=== PATIENT | female | born 2005 | race Two or more races ===

== ENCOUNTER 2024-05-26 13:46 | Emergency (ER) | payer SELFPAY ==
[~2024-05-26] VITALS: Ht 152.4 cm; Wt 65.0 kg
--- NOTE | 2024-05-26 14:44 | ED.PDOC ---
History of Present Illness HPI Comments 18-year-old female presents to the ER with no prior history associated with a chief complaint of mouth pain. Patient has a body cavity on the left lower tooth. Patient reports on the left cheek swelling yesterday. There are no abscess near or around the cavity or trismus. Denies PMHx, SHx, Social Hx, chi lls, fever, N/V/D, SOB, CP or other associated symptoms, modifiers, or recent injuries at this time. Time Seen by MD: 14:15 Reviewed Notes: Nurses Notes, Medications, Allergies Allergies: Coded Allergies: NO KNOWN ALLERGIES (Unverified , 05/26/24) Information Source: Patient Mode of Arrival: Ambulatory Severity: Moderate Timing: Hours Duration: Since onset, Hours Prehospital treatment: None Past Medical History PAST MEDICAL HISTORY: Denies Surgical History: Denies all surgeries MACHINE HOOP MAKER History: No Pertinent MACHINE HOOP MAKER History Family History Family History: Reviewed,noncontributory to illness, Unknown Social History Smoker: Non-Smoker Alcohol: Denies ETOH Use Drugs: Denies Drug Use Lives In: Home Constitutional: denies: chills, diaphoresis, fatigue, fever, malaise, sweats, weakness, others EENTM: reports: mouth pain, mouth swelling; denies: blurred vision, double vision, ear bleeding, ear discharge, ear drainage, ear pain, ear ringing, eye pain, eye redness, hearing loss, nasal discharge, nose bleeding, nose congestion, nose pain, photophobia, tearing, throat pain, throat swelling, voice changes, others Respiratory: denies: cough, hemoptysis, orthopnea, SOB at rest, shortness of breath, SOB with excertion, stridor, wheezing, others Cardiovascular: denies: chest pain, dizzy spells, diaphoresis, Dyspnea on exertion, edema, irregular heart beat, left arm pain, lightheadedness, palpitations, PND, syncope, others Gastrointestinal: denies: abdomen distended, abdominal pain, blood streaked bowels, constipated, diarrhea, dysphagia, difficulty swallowing, hematemesis, melena, nausea, poor appetite, poor fluid intake, rectal bleeding, rectal pain, vomiting, others Genitourinary: denies: abnormal vagina bleeding, burning, dyspareunia, dysuria, flank pain, frequency, hematuria, incontinence, pain, , vagina discharge, urgency, others Neurological: denies: dizziness, fainting, headache, left sided numbness, left sided weakness, numbness, paresthesia, pre-existing deficit, right sided numbness, right sided weakness, seizure, speech problems, tingling, tremors, weakness, others Musculoskeletal: denies: back pain, gout, joint pain, joint swelling, muscle pain, muscle stiffness, neck pain, others Integumetry: denies: bruises, change in color, change in hair/nails, dryness, laceration, lesions, lumps, rash, wounds, others Allergic/Immunocompromised: denies: Difficulty Healing, Frequent Infections, Hives, Itching, others Hematologic/Lymphatic: denies: anemia, blood clots, easy bleeding, easy bruising, swollen glands, others Endocrine: denies: excessive hunger, excessive sweating, excessive thirst, excessive urination, flushing, intolerance to cold, intolerance to heat, unexplained weight gain, unexplained weight loss, others Psychiatric: denies: anxiety, bipolar disorder, depression, hopeless, panic disorder, schizophrenia, sleepless, suicidal, others All Other Systems: Reviewed and Negative Physical Exam Exam Comments Left cheek swelling is mild Canine area cavity No abscess No Trismus General Appearance: No Apparent Distress, Normal HEENT: Normal ENT Inspection, Pharynx Normal, TMs Normal Neck: Full Range of Motion, Non-Tender, Normal, Normal Inspection Respiratory: Chest Non-Tender, Lungs Clear, No Accessory Muscle Use, No Respiratory Distress, Normal Breath Sounds Cardiovascular: No Edema, No JVD, No Murmur, No Gallop, Normal Peripheral Pulses, Regular Rate/Rhythm Breast Exam: Deferred Gastrointestinal: No Organomegaly, Non Tender, No Pulsatile Mass, Normal Bowel Sounds, Soft Genitalia: Deferred Pelvic: Deferred Rectal: Deferred Extremities: No calf tenderness, Normal capillary refill, Normal inspection, Normal range of motion, Non-tender, No pedal edema Musculoskeletal : Apperance: Normal Neurologic: Alert, mixing machine tender cork gasket II-XII nml as Tested, No Motor Deficits, Normal Affect, Normal Mood, No Sensory Deficits Cerebellar Function: Normal Reflexes: Normal Skin: Dry, Normal Color, Warm Lymphatic: No Adenopathy Was a procedure done? Was a procedure done?: No Differential Dx Considerations may include: facial cellulitis, facial abscess, dental infection, gingivitis, dental caries, dental abscess X-Ray, Labs, Meds, VS Vital Signs Date Time Temp Pulse Resp B/P (MAP) Pulse Ox O2 Delivery O2 Flow Rate FiO2 05/26/24 15:32 75 16 99 Room Air* 0 21 05/26/24 15:31 98.6 75 16 119/87 (98) 99 98.6 05/26/24 14:47 97.9 82 18 140/95 (110) 97 Lab Test 05/26/24 14:28 Range/Units White Blood Count 11.6 H 4.4-10.8 10^3/uL Red Blood Count 4.95 4.0-5.20 10^6/uL Hemoglobin 15.1 12.2-16.2 g/dL Hematocrit 44.2 36.0-46.0 % Mean Corpuscular Volume 89.4 80.0-100.0 fL Mean Corpuscular Hemoglobin 30.4 28.0-32.0 pg Mean Corpuscular Hemoglobin Concent 34.0 32.0-36.0 g/dL Red Cell Distribution Width 12.6 11.8-14.3 % Platelet Count 212 140-450 10^3/uL Mean Platelet Volume 9.4 6.9-10.8 fL Neutrophils (%) (Auto) 74.2 37.0-80.0 % Lymphocytes (%) (Auto) 17.7 10.0-50.0 % Monocytes (%) (Auto) 6.5 0.0-12.0 % Eosinophils (%) (Auto) 1.2 0.0-7.0 % Basophils (%) (Auto) 0.4 0.0-2.0 % Neutrophils # (Auto) 8.6 1.6-8.6 10 ^3/uL Lymphocytes # (Auto) 2.0 0.4-5.4 10 ^3/uL Monocytes # (Auto) 0.8 0-1.3 10 ^3/uL Eosinophils # (Auto) 0.1 0-0.8 10 ^3/uL Basophils # (Auto) 0.1 0-0.2 10 ^3/uL Nucleated Red Blood Cells 0.0 % Current Medications Medications (Trade) Dose Ordered Sig/Hiro Route Start Time Stop Time Status Last Admin Ceftriaxone Sodium (Rocephin W Lidocaine IM) 1 gm ONCE ONCE IM 05/26/24 14:15 05/26/24 14:16 DC 05/26/24 15:31 Time of 1ST Reevaluation: 14:45 Reevaluation 1ST: Unchanged Time of 2ND Reevaluation: 15:43 Reevaluation 2ND: Improved Patient Education/Counseling: Diagnosis, Treatment, Prognosis Family Education/Counseling: No Family Present Additional Information External Notes-N/A Ordered Tests-cbc treatments and results communicated with medical personnel im antibiotic administered pt has facial cellulitis from a dental infection, without an abscess. she is stable to be discharged, with antibiotic, NSAID, and follow up with her dentist Departure 1 Departure Time of Disposition: 15:45 Impression: Primary Impression: Dental caries Additional Impression: Facial cellulitis Disposition: 01 HOME / SELF CARE / HOMELESS Condition: Good Discharged With: Self, Relative (Mother) Critical Care Note Critical Care Time?: No Stability Stability form required: No I personally scribed for KIRA BENITEZ MD ([email or web address]) on 05/26/24 at 14:44. Electronically submitted by Riley Patterson ([email or web address]). KIRA BENITEZ MD May 26, 2024 14:44
[2024-05-26 14:52] LABS: Basophils # (auto) 0.1 10 ^3/uL (0-0.2); Basophils % (auto) 0.4 % (0.0-2.0); Eosinophils # (auto) 0.1 10 ^3/uL (0-0.8); Eosinophils % (auto) 1.2 % (0.0-7.0); Hematocrit 44.2 % (36.0-46.0); Hemoglobin 15.1 g/dL (12.2-16.2); Lymphocytes % (auto) 17.7 % (10.0-50.0); Mean Corpuscular Hemoglobin 30.4 pg (28.0-32.0); Mean Corpuscular Volume 89.4 fL (80.0-100.0); Monocytes # (auto) 0.8 10 ^3/uL (0-1.3); Monocytes % (auto) 6.5 % (0.0-12.0); Neutrophils # (auto) 8.6 10 ^3/uL (1.6-8.6); Neutrophils % (auto) 74.2 % (37.0-80.0); Platelet Count (auto) 212 10^3/uL (140-450); Red Blood Cells 4.95 10^6/uL (4.0-5.20); Red Cell Distribution Width 12.6 % (11.8-14.3); White Blood Cell 11.6 10^3/uL (4.4-10.8)
[2024-05-26 15:31] VITALS: BP 119/87; TEMP 98.6
[2024-05-26] MEDS: cefTRIAXone W LIDOCAINE 1 GM IM IM ONE (15:31)
[2024-05-26 15:32] VITALS: PULSE 75; RESP 16; O2SAT 99
[2024-05-26] MEDS: cefTRIAXone SOD 1,000 MG VL ONE (15:37)
[2024-05-26] MEDS: LIDOCAINE 1% HCL (LOCAL ANESTH.) INJ 20ML MDV ONE ×2 (15:37→15:38)
[2024-05-26] MEDS ORDERED: IBU600T PO (15:47)
[2024-05-26] MEDS ORDERED: CEPH500T PO (15:47)
== END 2024-05-26 16:00 | disposition home or self-care (01) ==
LOC: ER 13:46
DX: K02.9 Dental caries, unspecified (principal); L03.211 Cellulitis of face
CPT/HCPCS: 36415; 85025; 96372; 99283; J0696; J2003

== ENCOUNTER 2024-06-07 23:33 | Emergency (ER) | payer MEDICAID, OTHER ==
[~2024-06-07] VITALS: Ht 162.6 cm; Wt 63.7 kg
[~2024-06-07 23:33] MED LIST: CEPH500T PO; IBU600T PO
[2024-06-08 01:13] VITALS: BP 124/80; PULSE 98; RESP 17; TEMP 99.9; O2SAT 98
[2024-06-08] MEDS: DexAMETHasone SOD PHOS 10MG/1ML VIAL INJ IM ONE (01:27)
[2024-06-08] MEDS: cefTRIAXone SOD 1,000 MG VL IM ONE (01:27)
[2024-06-08] MEDS: BENZOCAINE (DENTAL) 20 % SPRAY 60ML MT ONE (01:34)
[2024-06-08] MEDS ORDERED: AUG875T PO (03:44)
[2024-06-08] MEDS ORDERED: CLIN1CAP70 PO (03:44)
--- NOTE | 2024-06-08 03:44 | ED.PDOC ---
Eye-HPI HPI Comments THIS IS A 18-YEAR-OLD FEMALE PRESENTS TO THE ED CHIEF COMPLAINT SORE THROAT X2 DAYS.. LEFT-SIDED THROAT PAIN 8/10 ON PAIN SCALE THROBBING AND BURNING IN NATURE. SHE HAS BEEN TAKING [id number] TYLENOL AND MOTRIN WITH LITTLE RELIEF. CURRENTLY DENIES DIFFICULTY BREATHING, DIFFICULTY IN SWALLOWING, SHARP OF BREATH, DOES NOTE SUBJECTIVE FEVERS AT HOME. Chief Complaint: Sore Throat Time Seen by MD: 23:38 Reviewed Notes: Nurses Notes, Medications, Allergies Allergies: Coded Allergies: NO KNOWN ALLERGIES (Unverified , 05/26/24) Home Meds Active Scripts Clindamycin Hcl (Clindamycin Hcl) 300 Mg Cap, 1 CAP PO QID for 10 Days, #40 CAP Prov:SALLIE OHARA 06/08/24 Amoxicillin & Pot Clavulanate (AUGMENTIN TABLET) 875 Mg Tb, 1 TAB PO BID for 10 Days, #20 TAB Prov:SALLIE OHARA 06/08/24 Ibuprofen Micronized (MOTRIN TABLET) 600 Mg Tb, 600 MG PO TID PRN, #40 TAB *Black box warning-NSAIDS can increase risk of SC & hypertension, GI irritation, ulceration, bleed, perferation. Do not use post cardiac surgery. Use short duration/lowest effective dose. Prov:KIRA BENITEZ MD 05/26/24 Cephalexin Monohydrate (Cephalexin) 500 Mg Tab, 500 MG PO QID for 7 Days, #28 TAB Prov:KIRA BENITEZ MD 05/26/24 Information Source: Patient Mode of Arrival: Ambulatory Past Medical History PAST MEDICAL HISTORY: Denies Surgical History: Denies all surgeries WIRE WALKER History: No Pertinent WIRE WALKER History Family History Family History: Reviewed,noncontributory to illness, Unknown Social History Smoker: Non-Smoker Alcohol: Denies ETOH Use Drugs: Denies Drug Use Lives In: Home Constitutional: reports: fever; denies: chills, diaphoresis, fatigue, malaise, sweats, weakness, others EENTM: reports: throat pain, throat swelling; denies: blurred vision, double vision, ear bleeding, ear discharge, ear drainage, ear pain, ear ringing, eye pain, eye redness, hearing loss, mouth pain, mouth swelling, nasal discharge, nose bleeding, nose congestion, nose pain, photophobia, tearing, voice changes, others Respiratory: denies: cough, hemoptysis, orthopnea, SOB at rest, shortness of breath, SOB with excertion, stridor, wheezing, others Cardiovascular: denies: chest pain, dizzy spells, diaphoresis, Dyspnea on exertion, edema, irregular heart beat, left arm pain, lightheadedness, palpitations, PND, syncope, others Gastrointestinal: denies: abdomen distended, abdominal pain, blood streaked bowels, constipated, diarrhea, dysphagia, difficulty swallowing, hematemesis, melena, nausea, poor appetite, poor fluid intake, rectal bleeding, rectal pain, vomiting, others Genitourinary: denies: abnormal vagina bleeding, burning, dyspareunia, dysuria, flank pain, frequency, hematuria, incontinence, pain, , vagina discharge, urgency, others Neurological: denies: dizziness, fainting, headache, left sided numbness, left sided weakness, numbness, paresthesia, pre-existing deficit, right sided numbness, right sided weakness, seizure, speech problems, tingling, tremors, weakness, others Musculoskeletal: denies: back pain, gout, joint pain, joint swelling, muscle pain, muscle stiffness, neck pain, others Integumetry: denies: bruises, change in color, change in hair/nails, dryness, laceration, lesions, lumps, rash, wounds, others Allergic/Immunocompromised: denies: Difficulty Healing, Frequent Infections, Hives, Itching, others Hematologic/Lymphatic: denies: anemia, blood clots, easy bleeding, easy bruising, swollen glands, others Endocrine: denies: excessive hunger, excessive sweating, excessive thirst, excessive urination, flushing, intolerance to cold, intolerance to heat, unexplained weight gain, unexplained weight loss, others Psychiatric: denies: anxiety, bipolar disorder, depression, hopeless, panic disorder, schizophrenia, sleepless, suicidal, others Physical Exam General Appearance: No Apparent Distress, Normal HEENT: Pharyngeal Erythema, TMs Normal, Other (LEFT TONSIL NOTED PERITONSILLAR ABSCESS APPROXIMATE SIZE OF A QUARTER. UVULA DEVIATED TO OPPOSITE SIDE TO THE LEFT. ) Neck: Full Range of Motion, Non-Tender Respiratory: Lungs Clear, No Respiratory Distress, Normal Breath Sounds Cardiovascular: No Murmur, Normal Peripheral Pulses, Regular Rate/Rhythm Breast Exam: Deferred Gastrointestinal: Non Tender, Soft Genitalia: Deferred Pelvic: Deferred Rectal: Deferred Extremities: Normal range of motion Musculoskeletal : Apperance: Normal Neurologic: Alert, core checker II-XII nml as Tested, No Motor Deficits, Normal Affect, Normal Mood, No Sensory Deficits Cerebellar Function: Normal Reflexes: Normal Skin: Dry, Normal Color, Warm Lymphatic: Cervical Adenopathy (R), No Adenopathy Was a procedure done? Was a procedure done?: Yes Sedation Sedation?: No Informed consent obtained: Yes Incision and Drainage Incision and Drainage: Abscess Location LEFT PERITONSILLAR ABSCESS Anesthetic: Other (HURRICAINE SPRAY) Incision and Wound: Pus, Blood Informed consent obtained: Yes Risks/benefits/alt described: Yes Notes PROCEDURE PERFORMED I DR. COLVIN DRAINAGE OF PERITONSILLAR ABSCESS. PATIENT TOLERATED WELL MINIMAL BLOOD LOSS. 5 CC OF PUS REMOVED PATIENT'S AIRWAY REMAINED INTACT. EENT DIFF Eye: N/A Sore Throat: Steve's Angina, Streptococcal X-Ray, Labs, Meds, VS Vital Signs Date Time Temp Pulse Resp B/P (MAP) Pulse Ox O2 Delivery O2 Flow Rate FiO2 06/08/24 01:13 99.9 98 17 124/80 (95) 98 99.9 06/08/24 00:05 99.9 96 18 126/91 (103) 99 Current Medications Medications (Trade) Dose Ordered Sig/Hiro Route Start Time Stop Time Status Last Admin Ceftriaxone Sodium (Rocephin) 1,000 mg ONCE ONCE IM 06/08/24 01:30 06/08/24 01:31 DC 06/08/24 01:27 Dexamethasone Sodium Phosphate (Decadron Injection) 10 mg ONCE ONCE IM 06/08/24 01:30 06/08/24 01:31 DC 06/08/24 01:27 X-Ray, Labs, Meds, VS Comment THE TONSILLAR ABSCESS DRAINED SEE PROCEDURE NOTE. SCRIPT AUGMENTIN AND CLINDAMYCIN ADVISED TO TAKE A PROBIOTIC OR DAILY YOGURT. ADVISED PATIENT TO REST INCREASE P.O. FLUIDS WITH ELECTROLYTES. SOFT FOOD DIET TOLERATED. ADVISED TO RETURN TO THE ER FOR DIFFICULTY BREATHING, SHORTNESS OF BREATH, HIGH FEVERS, CONTINUED BLEEDING, OR ANY CONCERNING SYMPTOMS. PATIENT INDICATED UND ERSTANDING AND AGREES WITH DISCHARGE PLAN OF CARE. Time of 1ST Reevaluation: 03:44 Reevaluation 1ST: Improved Patient Education/Counseling: Diagnosis, Treatment, Prognosis, Need For Follow Up Family Education/Counseling: No Family Present Departure 1 Departure Time of Disposition: 03:44 Impression: Primary Impression: Peritonsillar abscess Disposition: 01 HOME / SELF CARE / HOMELESS Condition: Stable e-Prescriptions Clindamycin Hcl (Clindamycin Hcl) 300 Mg Cap 1 CAP PO QID for 10 Days, #40 CAP Prov: SALLIE OHARA 06/08/24 Amoxicillin & Pot Clavulanate (AUGMENTIN TABLET) 875 Mg Tb 1 TAB PO BID for 10 Days, #20 TAB Prov: SALLIE OHARA 06/08/24 Discharged With: Self Critical Care Note Critical Care Time?: No Stability Stability form required: No SALLIE OHARA Jun 08, 2024 03:44
== END 2024-06-08 03:51 | disposition home or self-care (01) ==
LOC: ER 23:33
DX: J36 Peritonsillar abscess (principal); Z79.899 Other long term (current) drug therapy
CPT/HCPCS: 42700; 96372; 99284; J0696; J1100

== ENCOUNTER 2025-04-10 19:41 | Emergency (ER) | payer MEDICAID ==
[~2025-04-10] VITALS: Ht 152.4 cm; Wt 60.9 kg
[2025-04-10] MEDS ORDERED: AUG875T PO (21:02)
[2025-04-10] MEDS ORDERED: IBU600T PO (21:02)
--- NOTE | 2025-04-10 21:02 | ED.PDOC ---
Eye-HPI HPI Comments PT CAME TO THE ER WITH CC OF TOOTH PAIN, PT STATES THAT SHE HAS AN APPOINTMENT ON THE BUT SHE THINKS THAT ITS INFECTED AND CANT TAKE THE PAIN. PT IS A&OX4 RR EVEN AND REGULAR NO DISTRESS NOTED AT THIS TIME. PT DENIES N/V/D CP SOB, THROAT SWELLING, FEVER OR CHILLS Chief Complaint: Tooth Pain Time Seen by MD: 20:05 Reviewed Notes: Nurses Notes, Medications, Allergies Allergies: Coded Allergies: NO KNOWN ALLERGIES (Unverified , 05/26/24) Home Meds Active Scripts Ibuprofen Micronized (MOTRIN TABLET) 600 Mg Tb, 600 MG PO TID PRN for 6 Days, #18 TAB *Black box warning-NSAIDS can increase risk of TN & hypertension, GI irritation, ulceration, bleed, perferation. Do not use post cardiac surgery. Use short duration/lowest effective dose. Prov:SALLIE OHARA 04/10/25 Amoxicillin & Pot Clavulanate (AUGMENTIN TABLET) 875 Mg Tb, 875 MG PO BID for 7 Days, #14 TAB Prov:SALLIE OHARA 04/10/25 Ibuprofen Micronized (MOTRIN TABLET) 600 Mg Tb, 600 MG PO TID PRN, #40 TAB *Black box warning-NSAIDS can increase risk of TN & hypertension, GI irritation, ulceration, bleed, perferation. Do not use post cardiac surgery. Use short duration/lowest effective dose. Prov:KIRA BENITEZ MD 05/26/24 Cephalexin Monohydrate (Cephalexin) 500 Mg Tab, 500 MG PO QID for 7 Days, #28 T AB Prov:KIRA BENITEZ MD 05/26/24 Information Source: Patient Mode of Arrival: Ambulatory Past Medical History PAST MEDICAL HISTORY: Denies Surgical History: Denies all surgeries TRUCK REPAIR SERVICE ESTIMATOR History: No Pertinent TRUCK REPAIR SERVICE ESTIMATOR History Family History Family History: Reviewed,noncontributory to illness, Unknown Social History Smoker: Non-Smoker Alcohol: Denies ETOH Use Drugs: Denies Drug Use Lives In: Home All Other Systems: Reviewed and Negative (SEE HPI) Physical Exam General Appearance: No Apparent Distress, Normal HEENT: Pharynx Normal, TMs Normal, Other (TOOTH NUMBER 38 NOTED CRACKED WITH MODERATE DECAY NO NOTED DRAINAGE NOTED GUM ERYTHEMA WITHOUT OBVIOUS ABSCESS) Neck: Full Range of Motion, Non-Tender, Normal, Normal Inspection Respiratory: Lungs Clear, No Respiratory Distress Cardiovascular: No Murmur, Normal Peripheral Pulses, Regular Rate/Rhythm Breast Exam: Deferred Gastrointestinal: Non Tender, Soft Genitalia: Deferred Pelvic: Deferred Rectal: Deferred Extremities: Normal capillary refill, Normal range of motion Musculoskeletal : Apperance: Normal Neurologic: Alert, No Motor Deficits, Normal Affect, Normal Mood, No Sensory Deficits Cerebellar Function: Normal Reflexes: NOT DONE Skin: Dry, Normal Color, Warm Lymphatic: No Adenopathy Was a procedure done? Was a procedure done?: No EENT DIFF Eye: N/A Ear: Dental, Pharyngitis Sore Throat: Steve's Angina X-Ray, Labs, Meds, VS Vital Signs Date Time Temp Pulse Resp B/P (MAP) Pulse Ox O2 Delivery O2 Flow Rate FiO2 04/10/25 21:13 98.4 69 20 124/87 (99) 99 98.4 04/10/25 19:53 99.0 68 16 128/98 97 99.0 Current Medications Medications (Trade) Dose Ordered Sig/Hiro Route Start Time Stop Time Status Last Admin Ketorolac Tromethamine (Toradol Injection) 60 mg ONCE ONCE IM 04/10/25 21:00 04/10/25 21:01 DC 04/10/25 21:09 Benzocaine (Hurricaine [place]) 1 spr ONCE ONCE MT 04/10/25 21:00 04/10/25 21:01 DC 04/10/25 21:09 Ceftriaxone Sodium (Rocephin) 1,000 mg ONCE ONCE IM 04/10/25 21:00 04/10/25 21:01 DC 04/10/25 21:19 X-Ray, Labs, Meds, VS Comment PATIENT GIVEN 60 MG OF TORADOL, HURRICAINE SPRAY, AND ROCEPHIN 1 G IM. SCRIPT TRIAL OF AUGMENTIN ADVISED TAKE MEDICATION PRESCRIBED SIDE EFFECTS DISCUSSED. SCRIPT TRIAL OF MOTRIN. ADVISED TO REST INCREASE P.O. FLUIDS WITH ELECTROLYTES. ADVISED THE FOLLOW UP WITH HER SCHEDULED APPOINTMENT WITH THE DENTIST. ER RETURN PRECAUTIONS GIVEN PATIENT INDICATES UNDERSTANDING AND AGREES WITH DISCHARGE PLAN OF CARE. Time of 1ST Reevaluation: 20:58 Reevaluation 1ST: Unchanged Time of 2ND Reevaluation: 21:21 Reevaluation 2ND: Improved Patient Education/Counseling: Diagnosis, Treatment, Need For Follow Up Family Education/Counseling: Diagnosis, Treatment, Need For Follow Up SEPSIS Sepsis Screen Date sepsis recognized/suspect: Apr 10, 2025 Time Sepsis recognized/suspect: 1942 Recent Procedure: No On Antibiotic Therapy: No Respiratory Rate >20: No Heart Rate >90: No Temp<36 C (96.8 F) or >38.3 C: No SBP <90 or MAP <65 mmHG: No New Acute Mental Status Change: No Is the patient on CPAP, BIPAP,: No Vital Signs Date Time Temp Pulse Resp B/P (MAP) Pulse Ox O2 Delivery O2 Flow Rate FiO2 04/10/25 21:13 98.4 69 20 124/87 (99) 99 98.4 04/10/25 19:53 99.0 68 16 128/98 97 99.0 Medications Medications Dose Ordered Sig/Hiro Route Start Time Stop Time Status Last Admin Dose Admin Benzocaine 1 spr ONCE ONCE MT 04/10/25 21:00 04/10/25 21:01 DC 04/10/25 21:09 Ceftriaxone Sodium 1,000 mg ONCE ONCE IM 04/10/25 21:00 04/10/25 21:01 DC 04/10/25 21:19 Ketorolac Tromethamine 60 mg ONCE ONCE IM 04/10/25 21:00 04/10/25 21:01 DC 04/10/25 21:09 Departure 1 Departure Time of Disposition: 21:21 Impression: Primary Impression: Infected dental caries Disposition: 01 HOME / SELF CARE / HOMELESS Condition: Stable e-Prescriptions Ibuprofen Micronized (MOTRIN TABLET) 600 Mg Tb 600 MG PO TID PRN for 6 Days, #18 TAB *Black box warning-NSAIDS can increase risk of TN & hypertension, GI irritation, ulceration, bleed, perferation. Do not use post cardiac surgery. Use short duration/lowest effective dose. Prov: SALLIE OHARA 04/10/25 Amoxicillin & Pot Clavulanate (AUGMENTIN TABLET) 875 Mg Tb 875 MG PO BID for 7 Days, #14 TAB Prov: SALLIE OHARA 04/10/25 Discharged With: Relative (Mother) Critical Care Note Critical Care Time?: No Stability Stability form required: No SALLIE OHARA Apr 10, 2025 21:02
[2025-04-10] MEDS: KETOROLAC TROMETH 60MG/2ML VIAL IM ONE (21:09)
[2025-04-10] MEDS: BENZOCAINE (DENTAL) 20 % SPRAY 60ML MT ONE (21:09)
[2025-04-10 21:13] VITALS: BP 124/87; PULSE 69; RESP 20; TEMP 98.4; O2SAT 99
[2025-04-10] MEDS: cefTRIAXone SOD 1,000 MG VL IM ONE (21:19)
== END 2025-04-10 21:29 | disposition home or self-care (01) ==
LOC: ER 19:41
DX: K02.9 Dental caries, unspecified (principal); Z79.899 Other long term (current) drug therapy
CPT/HCPCS: 96372; 99284; J0696; J1885